=== PATIENT | female | born 1975 | race Caucasian/White ===

== ENCOUNTER 2017-09-13 08:31 | Day surgery (SDC) | payer MEDICAID ==
[~2017-09-13 08:31] MED LIST: Bupivacaine 0.25% 10 ML SDV ONE; Bupivacaine 25%/EPINEPHrine/PF 0 ML ONE; Lactated Ringers 1,000 ML IV SCH; Lidocaine 2% 5 ML SDV ONE; Midazolam 1 MG/ML 2 ML SDV ONE; Ondansetron 4 MG/2 ML SDV ONE; Propofol 200 MG/20 ML SDV ONE; ceFAZolin 2 GM in Premix Bag 1 BAG IV ONE; fentaNYL 100 MCG/2 ML SDV ONE
[2017-09-13] MEDS ORDERED: fentaNYL 100 MCG/2 ML SDV IVPUSH PRN (08:35)
--- NOTE | 2017-09-13 09:00 | PCM.PREANE ---
Preanesthetic Assessment - Anesthesia/Transfusion/Family Hx Anesthesia History: Prior Anesthesia Without Reaction Family History of Anesthesia Reaction: No Transfusion History: No Prior Transfusion(s) Intubation History: Unknown - Review of Systems General: No Symptoms Pulmonary: No Symptoms Cardiovascular: No Symptoms Gastrointestinal: No Symptoms Neurological: No Symptoms Other: Reports: None - Physical Assessment O2 Sat by Pulse Oximetry: 98 Respiratory Rate: 16 Vital Signs: Last Vital Signs Temp 36.7 C 09/13/17 08:50 Pulse 63 09/13/17 08:50 Resp 16 09/13/17 08:50 BP 120/68 09/13/17 08:50 Pulse Ox 98 09/13/17 08:50 Height: 1.6 m Weight: 53.524 kg ASA Class: 1 Mental Status: Alert & Oriented x3 Airway Class: Mallampati = 2 Dentition: Reports: Normal Dentition Thyro-Mental Finger Breadths: 3 Mouth Opening Finger Breadths: 3 ROM/Head Extension: Full Lungs: Clear to Auscultation, Normal Respiratory Effort Cardiovascular: Regular Rate, Regular Rhythm - Lab Values: Laboratory Last Values Urine HCG, Qual NEGATIVE (NEGATIVE) 09/13/17 08:35 - Allergies Allergies/Adverse Reactions: Allergies Allergy/AdvReac Type Severity Reaction Status Date / Time No Known Allergies Allergy Verified 09/08/17 14:16 - Blood Blood Available: No - Anesthesia Plan Pre-Op Medication Ordered: None - Acknowledgements Anesthesia Type Planned: General Anesthesia Pt an Appropriate Candidate for the Planned Anesthesia: Yes Alternatives and Risks of Anesthesia Discussed w Pt/Guardian: Yes Pt/Guardian Understands and Agrees with Anesthesia Plan: Yes PreAnesthesia Questionnaire Genitourinary History: Reports: None [employer] History: Reports: - Past Surgical History Head Surgeries/Procedures: Reports: None Female Surgical History: Reports: Breast Implant, Section - SUBSTANCE USE Smoking Status *Q: Former Smoker Recreational Drug Use History: No - HOME MEDS Home Medications: Home Meds . [No Known Home Meds] 09/08/17 [History] - CURRENT (IN HOUSE) MEDS Current Meds: Current Medications Fentanyl (Sublimaze) 50 mcg IVPUSH .Q5MIN PRN PRN Reason: Pain Lactated Ringer's (Ringers, Lactated) 1,000 mls @ 125 mls/hr IV ASDIRECTED [facility] Last Admin: 09/13/17 08:52 Dose: 125 mls/hr Discontinued Medications Bupivacaine HCl (Sensorcaine-Mpf 0.25%) Confirm Administered Dose 20 ml .ROUTE .STK-MED ONE Stop: 09/13/17 07:29 Fentanyl (Sublimaze) Confirm Administered Dose 100 mcg .ROUTE .STK-MED ONE Stop: 09/13/17 07:37 Bupivacaine HCl/Epinephrine Bitart (Sensorc Mpf 0.25%-Epi [id number]) Confirm Administered Dose 30 mls @ as directed .ROUTE .STK-MED ONE Stop: 09/13/17 07:29 Cefazolin Sodium/Dextrose 2 gm (/ Premix) 50 mls @ 100 mls/hr IV ONETIME ONE Stop: 09/13/17 08:26 Lidocaine (Xylocaine-Mpf 2%) Confirm Administered Dose 5 ml .ROUTE .STK-MED ONE Stop: 09/13/17 07:37 Midazolam HCl (Versed 1 Mg/Ml) Confirm Administered Dose 2 mg .ROUTE .STK-MED ONE Stop: 09/13/17 07:37 Ondansetron HCl (Zofran) Confirm Administered Dose 4 mg .ROUTE .STK-MED ONE Stop: 09/13/17 07:37 Propofol (Diprivan 20 Ml) Confirm Administered Dose 200 mg .ROUTE .STK-MED ONE Stop: 09/13/17 07:37
[2017-09-13] MEDS ORDERED: Ketorolac 30 MG/ML SDV ONE (09:59)
--- NOTE | 2017-09-13 10:42 | PCM.POSTAN ---
POST ANESTHESIA ASSESSMENT - MENTAL STATUS Mental Status: Alert, Oriented - RESPIRATORY Respiratory Status: Respiratory Rate WNL, Airway Patent, O2 Saturation Stable - CARDIOVASCULAR CV Status: Pulse Rate WNL, Blood Pressure Stable - GASTROINTESTINAL GI Status: No Symptoms - PAIN Pain Score: 0 - POST OP HYDRATION Hydration Status: Adequate & Stable
--- NOTE | 2017-09-13 10:51 | PCM48HPAN ---
Post Anesthesia Note - EVALUATION WITHIN 48HRS OF ANESTHETIC Vital Signs in Normal Range: Yes Patient Participated in Evaluation: Yes Respiratory Function Stable: Yes Airway Patent: Yes Cardiovascular Function Stable: Yes Hydration Status Stable: Yes Pain Control Satisfactory: Yes Nausea and Vomiting Control Satisfactory: Yes Mental Status Recovered: Yes
[2017-09-13] MEDS ORDERED: Bupivacaine 25%/EPINEPHrine/PF 0 ML ONE (14:43)
--- NOTE | 2017-09-13 17:45 | PCM.OPNOTE ---
- General Post-Op/Procedure Note Date of Surgery/Procedure: 09/13/17 Operative Procedure(s): repair of left middle finger fdp tendon laceration zone 1 Pre Op Diagnosis: left midde finger FDP tendon laceration Post-Op Diagnosis: Same Anesthesia Technique: General LMA, Local Primary Surgeon: Carlota Alonso Slasher Runner: Ebony Mays Complications: None Condition: Good Free Text/Narrative:: Intake & Output 09/13/17 09/13/17 09/13/17 07:59 15:59 23:59 Intake Total 500 Balance 500
--- NOTE | 2017-09-14 13:30 | OR ---
SURGEON: ANNITA BERNAL MD DATE OF PROCEDURE: 09/13/2017 PREOPERATIVE DIAGNOSIS: Left middle finger flexor digitorum profundus tendon laceration at the proximal aspect of zone one. POSTOPERATIVE DIAGNOSIS: Left middle finger flexor digitorum profundus tendon laceration at the proximal aspect of zone one. PROCEDURE: Repair of left middle finger flexor digitorum profundus tendon laceration zone one. MELTING SUPERVISOR: Ebony Mays PA-C. ANESTHESIA: General LMA with local. Reason for blood and plasma laboratory assistant retraction and finger positioning. INDICATIONS: Ms. Delgado is a 41-year-old female who has lacerated the flexor tendon in zone one of the left middle finger just at the distal aspect of the middle phalanx. Risks and benefits of repair were discussed with them and they were in agreement to proceed. Fortunately, the tendon appears to be in situ. Risks and benefits were discussed including, but not limited to, bleeding, infection, damage to underlying or overlying structures, possible need for future interventions, possible scarring. The patient states normal sensation and does not note any defect in sensory appreciation of the finger tips. PROCEDURE IN DETAIL: After informed consent was obtained and placed on the chart, the patient was brought to the operating theater and laid in supine position. After adequate general anesthetic was obtained, the area was prepped and draped and a time-out was completed to confirm side and site. Local anesthesia was infiltrated into the area after a time-out completed and the arm was exsanguinated and tourniquet was inflated to 200 mmHg. Once adequately prepared, attention was then paid to dissection over incorporating the previous laceration in a Shellie style fashion. Once adequately opened and dissected, the flexor tendon proximal and distal ends were easily visualized in situ and were brought in close approximation. The tendon was held in place using a stab needle proximally in the finger and a 4-0 FiberWire was used to repair in a modified Cabrera fashion in a horizontal mattress for a 4-strand repair. Once adequately repaired, the tendon edges were smoothed using epitendinous stitch and a 6-0 Prolene. Once adequately repaired, the finger was brought through range of motion, and appropriate glide was appreciated for the tendon. Once adequately appreciated, attention was paid to irrigation and closure of the skin using 5-0 nylon stitch in a horizontal mattress fashion. Once adequately closed, the wound was dressed with Xeroform fluffs and a Kerlix gauze dressing and a short-arm volar splint. She tolerated this well. All counts and needles were correct at the end of the case. FOLLOWUP INSTRUCTIONS: The patient will see us in 10 to 14 days sooner if any problems, questions, or concerns and was given a prescription for pain medication. PRIMARY SURGEON: SECONDARY SURGEON: REASON MELTING SUPERVISOR WAS NECESSARY: ROLE OF MELTING SUPERVISOR: JOSE RAFAEL CRUZ /[id number]
== END 2017-09-13 11:15 | disposition home or self-care (01) ==
LOC: MW.SDS 08:31
PROVIDERS: ATTEND Plastic Surgery
DX: S66.123A Laceration of flexor muscle, fascia and tendon of left middle finger at wrist and hand level, initial encounter (principal); Z98.82 Breast implant status; Z98.890 Other specified postprocedural states
CPT/HCPCS: 26370; 81025; J0690; J1885; J2250; J2405; J3010; J7120; 01810; J2704